=== PATIENT | male | born 1990 | race African-American/Black ===

== ENCOUNTER 2020-12-17 08:07 | Outpatient (CLI) | payer BC, OTHER | END 2020-12-17 08:08 | disposition home or self-care (01) | LOC: SCSMRI 08:07 | PROVIDERS: ATTEND Neurological Surgery | DX: M47.12 Other spondylosis with myelopathy, cervical region (principal); M47.26 Other spondylosis with radiculopathy, lumbar region; M51.16 Intervertebral disc disorders with radiculopathy, lumbar region | CPT/HCPCS: 72141; 72148 ==